=== PATIENT | male | born 1945 | race Caucasian/White ===

== ENCOUNTER 2020-12-29 05:56 | Day surgery (SDC) | payer MEDICARE ==
[~2020-12-29] VITALS: Ht 190.5 cm; Wt 144.8 kg
[2020-12-29 06:33] VITALS: BP 137/75; PULSE 52; TEMP 97.3
[2020-12-29] MEDS ORDERED: CATAPRES 0.1MG0.1 MG PO (06:48)
[2020-12-29] MEDS ORDERED: CRESTOR 10MG10 MG PO (06:48)
[2020-12-29] MEDS ORDERED: VITAMIN C500 MG PO (06:49)
[2020-12-29] MEDS ORDERED: HCTZ 25MG TAB25 MG PO (06:49)
[2020-12-29] MEDS ORDERED: SYNTHROID0.075 MG/T PO (06:49)
[2020-12-29] MEDS ORDERED: ZESTRIL 20MG TA20 MG PO (06:49)
[2020-12-29] MEDS ORDERED: ASPIRIN E.C. 8181 MG PO (06:49)
[2020-12-29] MEDS ORDERED: DOCOSAHEXAENOIC ACID PO (06:50)
[2020-12-29] MEDS ORDERED: cholecalciferol (vit PO (06:50)
[2020-12-29 07:35] VITALS: BP 132/72; PULSE 53; TEMP 96.8
--- NOTE | 2020-12-29 07:35 | NUR ---
Pt returned to GI bay 1 via cart after procedure. Able to ambulate to chair in bay. A&O. , Rubio, present in room. VSS-see flowsheet. Requested jello and juice. Denies complaints or needs at this time. Call light in reach.
[2020-12-29 07:50] VITALS: BP 123/81; PULSE 53
[2020-12-29 08:05] VITALS: BP 128/65; PULSE 50
--- NOTE | 2020-12-29 08:17 | NUR ---
Pt A&O sitting up in chair in bay visiting with . VS remain stable. Tolerated juice and jello. Denies needs or complaints. Waiting for Dr Kwok to visit with them post procedure then pt will be ready to dc home.
--- NOTE | 2020-12-29 08:57 | NUR ---
Pts VS remain stable. Pts IV removed and pressure dressing applied. Discharge teaching completed, pt and spouse verbalized understanding. Taken via wheelchair to private vehicle for to drive pt home.
== END 2020-12-29 08:57 | disposition home or self-care (01) ==
LOC: SDCO 05:56
DX: D12.4 Benign neoplasm of descending colon (principal); R19.5 Other fecal abnormalities; K57.30 Diverticulosis of large intestine without perforation or abscess without bleeding; I48.92 Unspecified atrial flutter; I25.10 Atherosclerotic heart disease of native coronary artery without angina pectoris; I10 Essential (primary) hypertension; E78.5 Hyperlipidemia, unspecified; E03.9 Hypothyroidism, unspecified; E66.9 Obesity, unspecified; G47.33 Obstructive sleep apnea (adult) (pediatric); Z99.89 Dependence on other enabling machines and devices; Z86.010 Personal history of colon polyps; Z85.828 Personal history of other malignant neoplasm of skin; Z90.89 Acquired absence of other organs; Z90.49 Acquired absence of other specified parts of digestive tract; Z79.890 Hormone replacement therapy; Z79.82 Long term (current) use of aspirin; Z79.899 Other long term (current) drug therapy; Z20.822 Contact with and (suspected) exposure to COVID-19
CPT/HCPCS: J2704; J7120